=== PATIENT | female | born 1960 ===

== ENCOUNTER 2017-08-12 19:04 | Emergency (ER) | payer SELFPAY ==
[2017-08-12 20:02] LABS: HEMOGLOBIN 14.7 g/dL (11.0-16.0); MEAN CELL VOLUME 86.6 fL (81.0-99.0); MEAN CORPUSCULAR HEMOGLOBIN 30.6 pg (27.0-31.0); MEAN CORPUSCULAR HGB CONC 35.3 g/dL (33.0-37.0); MEAN PLATELET VOLUME 8.6 fL (7.2-11.7); RBC 4.8 Mil/uL (3.80-5.20)
[2017-08-12 20:15] LABS: ALBUMIN 4.3 g/dL (3.5-5.0); ALT/SGPT 43 U/L (9-52); AST/SGOT 54 U/L (14-36); BLOOD UREA NITROGEN 11 mg/dL (7-17); CALCIUM 9.5 mg/dl (8.6-10.4); GFR AFRICAN-AMERICAN > 60; GFR NON-AFRICAN AMERICAN > 60
--- NOTE | 2017-08-12 20:33 | C.PDOC ---
History Of Present Illness 57 year old male presents to the ER with family for a complaint of dizziness that began at approximately 15:00 that worsens with head movement and is associated with intermittent headache and nausea. As per family patient was recently sick with cough and cough symptoms last week. Denies weakness, numbness , chest pain, vomiting, or diarrhea. Chief Complaint (Nursing): Dizziness/Lightheaded History Per: Patient History/Exam Limitations: no limitations Onset/Duration Of Symptoms: Hrs Current Symptoms Are (Timing): Still Present Associated Symptoms Preceding Syncopal Episode: Worse With Standing Seizure Or Post-ictal Symptoms: None Fall Associated With With Symptoms: No Recent travel outside of the [place]: No - Symptoms Of CVA Associated Symptoms: denies: Impaired Speech, Seizure Activity, New Vision Deficit(Left), New Vision Deficit(Right), Decreased Ability To Walk, New Confusion Recent Head Trauma: No Past Medical History Reviewed: Historical Data, Nursing Documentation, Vital Signs Vital Signs: Last Vital Signs Temp 97.6 F 08/12/17 20:46 Pulse 72 08/12/17 20:46 Resp 20 08/12/17 20:46 BP 170/93 H 08/12/17 20:46 Pulse Ox 99 08/12/17 21:06 Family History: States: Unknown Family Hx - Social History Hx Alcohol Use: No Hx Substance Use: No - Immunization History Hx Tetanus Toxoid Vaccination: No Hx Influenza Vaccination: No Hx Pneumococcal Vaccination: No Review Of Systems Constitutional: Negative for: Fever, Chills Cardiovascular: Negative for: Chest Pain Gastrointestinal: Positive for: Nausea. Negative for: Vomiting, Diarrhea Neurological: Positive for: Headache, Dizziness. Negative for: Weakness, Numbness Physical Exam - Physical Exam Appears: Non-toxic Skin: Normal Color, Warm, Dry Head: Atraumatic, Normacephalic Eye(s): bilateral: Normal Inspection, PERRL, EOMI Ear(s): Bilateral: Normal Nose: Normal Oral Mucosa: Moist Throat: Normal, No Erythema, No Exudate Neck: Normal, Supple Chest: Symmetrical, No Tenderness Cardiovascular: Rhythm Regular Respiratory: Normal Breath Sounds, No Rales, No Rhonchi, No Wheezing Gastrointestinal/Abdominal: Soft, No Tenderness Neurological/Psych: Oriented x3, Normal Speech, Normal Cranial Nerves, Normal Motor, Normal Sensation, Other (Positive sterling hallpike maneuver on bilateral sides) ED Course And Treatment - Laboratory Results Result Diagrams: 08/12/17 19:59 08/12/17 19:59 ECG: Interpreted By Me, Viewed By Me ECG Interpretation: Normal Interpretation Of ECG: Mild sinus arrhythmia, no ectope, no acute ST/T wave changes. No old EKG for comparison. Rate From EC O2 Sat by Pulse Oximetry: 99 (Room air) Pulse Ox Interpretation: Normal Medical Decision Making Medical Decision Making: Impression: acute viral labyrinthitis. Blood work is all within normal limits, will dc with Rx for antibiotics and meclizine and instruct to follow up with PMD. Disposition - Disposition Referrals: [facility] at [facility] [Outside] Disposition: HOME/ ROUTINE Disposition Time: 20:32 Condition: GOOD Additional Instructions: take meclizine as needed,abiotics as prescribed Prescriptions: Amoxicillin/Potassium Clav [Augmentin 500-125 Tablet] 1 each PO TID #21 tablet Meclizine [Antivert] 12.5 mg PO TID PRN #15 tab PRN Reason: vertigo Instructions: Labyrinthitis (ED), Hypertension (ED) Forms: [employer] ([employer]) - Clinical Impression Clinical Impression: Labyrinthitis of both ears, Hypertension - Scribe Statement The provider has reviewed the documentation as recorded by the Scribe Orestes Tim All medical record entries made by the Scribe were at my direction and personally dictated by me. I have reviewed the chart and agree that the record accurately reflects my personal performance of the history, physical exam, medical decision making, and the department course for this patient. I have also personally directed, reviewed, and agree with the discharge instructions and disposition.
[2017-08-12 20:46] VITALS: BP 170/93; PULSE 72; RESP 20; TEMP 97.6
[2017-08-12 21:05] VITALS: O2SAT 99
[2017-08-12] MEDS ORDERED: Amoxicillin-Clav 500-125 mg Tab PO ONE (21:07)
--- NOTE | 2017-08-15 09:03 | CARD ---
APPROVED REPORT EKG Measurement Heart [id number] <Conclusion> Normal sinus rhythm with sinus arrhythmia Nonspecific ST and T wave abnormality Abnormal ECG
== END 2017-08-12 21:07 | disposition home or self-care (01) ==
LOC: C.ER 19:04
DX: I10 Essential (primary) hypertension (principal); H83.03 Labyrinthitis, bilateral

== ENCOUNTER 2018-08-12 06:39 | Emergency (ER) | payer MEDICAID, OTHER ==
[2018-08-12 07:03] VITALS: RESP 16; TEMP 98.6; O2SAT 99
[2018-08-12 07:20] LABS: SQUAMOUS EPITHIAL 1 /hpf (0-5); URINE BACTERIA RARE (<OCC); URINE BILIRUBIN NEGATIVE (NEGATIVE); URINE BLOOD NEGATIVE (NEGATIVE); URINE CLARITY Hazy (Clear); URINE COLOR Yellow (YELLOW); URINE GLUCOSE (UA) NORMAL (Normal); URINE HYALINE CAST 0-2 /lpf (0-2); URINE LEUKOCYTE ESTERASE NEG Leu/uL (Negative); URINE PROTEIN NEGATIVE (NEGATIVE); URINE UROBILINOGEN NORMAL mg/dL (0.2-1.0)
--- NOTE | 2018-08-12 07:28 | C.PDOC ---
History Of Present Illness 58 year old female presents to the ED for evaluation of persistent lower abdominal pain that occasionally radiates to the lower back for 5 days. The patient reports prior PMD visit who prescribed an unknown antibiotic 1 week ago, that was finished 1 day ago, no changes or improvement in symptoms. She notes the lower back pain waxes and wanes. Questionable frequency. Denies fever, chills, nausea, vomiting, and any other associated symptoms. Time Seen by Provider: 08/12/18 07:11 Chief Complaint (Nursing): Female Genitourinary History Per: Patient History/Exam Limitations: no limitations Onset/Duration Of Symptoms: Days (x5), Waxing/Waning, Persistent Current Symptoms Are (Timing): Still Present Recent travel outside of the [place]: No Past Medical History Reviewed: Historical Data, Nursing Documentation, Vital Signs Vital Signs: Last Vital Signs Temp 98.6 F 08/12/18 06:54 Pulse 78 08/12/18 06:54 Resp 16 08/12/18 06:54 BP 132/79 08/12/18 06:54 Pulse Ox 99 08/12/18 06:54 Family History: States: Unknown Family Hx - Social History Hx Alcohol Use: No Hx Substance Use: No - Immunization History Hx Tetanus Toxoid Vaccination: No Hx Influenza Vaccination: No Hx Pneumococcal Vaccination: No Review Of Systems Except As Marked, All Systems Reviewed And Found Negative. Constitutional: Negative for: Fever, Chills Gastrointestinal: Positive for: Abdominal Pain (lower. ). Negative for: Nausea, Vomiting Musculoskeletal: Positive for: Back Pain (radiates to lower back. ) Physical Exam - Physical Exam Appears: Well, Non-toxic, No Acute Distress Skin: Normal Color, Warm, Dry Head: Atraumatic, Normacephalic Eye(s): bilateral: Normal Inspection Oral Mucosa: Moist Neck: Normal ROM Chest: Symmetrical, No Deformity Cardiovascular: Rhythm Regular, No Murmur Respiratory: Normal Breath Sounds, No Rales, No Rhonchi, No Wheezing, Other (NARD) Gastrointestinal/Abdominal: Soft, Tenderness (suprapubic and lower abdominal tenderness. ) Extremity: Bilateral: Atraumatic, Normal Color And Temperature, Normal ROM Neurological/Psych: Oriented x3, Normal Speech, Normal Cognition ED Course And Treatment - Laboratory Results Result Diagrams: 08/12/18 08:10 08/12/18 08:10 Lab Results: Urine Color Yellow (YELLOW) 08/12/18 07:11 Urine Clarity Hazy (Clear) 08/12/18 07:11 Urine pH 5.0 (5.0-8.0) 08/12/18 07:11 Ur Specific [place] 1.023 (1.003-1.030) 08/12/18 07:11 Urine Protein Negative mg/dL (NEGATIVE) 08/12/18 07:11 Urine Glucose (UA) Normal mg/dL (Normal) 08/12/18 07:11 Urine Ketones Negative mg/dL (NEGATIVE) 08/12/18 07:11 Urine Blood Negative (NEGATIVE) 08/12/18 07:11 Urine Nitrate Negative (NEGATIVE) 08/12/18 07:11 Urine Bilirubin Negative (NEGATIVE) 08/12/18 07:11 Urine Urobilinogen Normal mg/dL (0.2-1.0) 08/12/18 07:11 Ur Leukocyte Esterase Neg [place]/uL (Negative) 08/12/18 07:11 Urine WBC (Auto) 4 /hpf (0-5) 08/12/18 07:11 Urine RBC (Auto) 21 /hpf (0-3) H 08/12/18 07:11 Ur Squamous Epith Cells 1 /hpf (0-5) 08/12/18 07:11 Urine Bacteria Rare (<OCC) 08/12/18 07:11 Hyaline Casts 0-2 /lpf (0-2) 08/12/18 07:11 O2 Sat by Pulse Oximetry: 99 (RA) Pulse Ox Interpretation: Normal - CT Scan/US CT ABD/Pelvis Other Rad Studies (CT/US): Read By Radiologist CT/US Interpretation: FINDINGS: LOWER THORAX: The visualized lungs are clear. LIVER: Normal in size with homogeneous enhancement. No gross lesion or ductal dilatation. GALLBLADDER AND BILE DUCTS: Well distended. No calcified ga llstones, wall thickening or pericholecystic fluid. PANCREAS: Normal in size with homogeneous enhancement. No gross lesion or ductal dilatation. SPLEEN: Normal in size and appearance. ADRENALS: No discrete nodule. KIDNEYS AND URETERS: Normal in size with homogeneous enhancement. There is a 3 mm nonobstructing stone in the interpolar region of the left kidney. No hydronephrosis. There is a subcentimeter simple cyst in the interpolar region of the left kidney. No solid mass. VASCULATURE: No aortic aneurysm. There are aortic atherosclerotic calcifications present. BOWEL: The small bowel loops are normal in caliber. The colon is grossly normal in appearance. No bowel wall thickening or obstruction. APPENDIX: Normal appendix. PERITONEUM: No free fluid. No free air. LYMPH NODES: No enlarged lymph nodes. BLADDER: Partially decompressed. REPRODUCTIVE: The uterus is normal in size and deviated to the left. BONES: No acute fracture. Bilateral pars interarticularis defects at L4 with grade 1 anterior listhesis of L4 on L5. Severe degenerative disc disease at L4-5 with disc desiccation. OTHER FINDINGS: There is a small sliding hiatal hernia. IMPRESSION: No acute abdominal or pelvic abnormality. 3 mm nonobstructing stone in the interpolar region of the l eft kidney. Bilateral pars interarticularis defects at L4 with grade 1 anterior listhesis of L4 on L5. Progress - Re-Evaluation Re-evaluation Note: 08/12/18 11:[address], LABS WNL. NO FINDINGS FOR ACUTE ABD. DC FU PMD - Data Reviewed Data Reviewed: Lab, Diagnostic imaging, Old records Medical Decision Making Medical Decision Making: Plan: -CT ABD PELVIS PO & IV CONTRAST -Blood sent. -Morphine -Zofran -Urinalysis Progress/Update: Patient stable for discharge home. Prescribed Antivert and Augmentin. Advised to return to the ED if symptoms worsen. Disposition Counseled Patient/Family Regarding: Studies Performed, Diagnosis, Need For Followup - Disposition Referrals: [facility] [Outside] [facility] [Outside] Disposition: HOME/ ROUTINE Disposition Time: 11:20 Condition: GOOD Instructions: Acute Abdomen (Belly Pain), Adult (DC) Forms: [employer] (Trinidadian) - Clinical Impression Clinical Impression: Abdominal pain - Scribe Statement The provider has reviewed the documentation as recorded by the Scribe (Concha marino) Provider Attestation: All medical record entries made by the Scribe were at my direction and personally dictated by me. I have reviewed the chart and agree that the record accurately reflects my personal performance of the history, physical exam, medical decision making, and the department course for this patient. I have also personally directed, reviewed, and agree with the discharge instructions and disposition.
[2018-08-12] MEDS ORDERED: Iohexol 240 (50 ml) PO STA (07:29)
[2018-08-12] MEDS ORDERED: Iohexol 240 (50 ml) ONE (08:06)
[2018-08-12] MEDS ORDERED: Morphine 4 MG/ML VIAL ONE (08:06)
[2018-08-12 08:13] LABS: BASO % 1.2 % (0.0-2.0); EOS # 0.2 K/uL (0.0-0.7); EOS % 5.2 % (0.0-4.0); HEMOGLOBIN 14.9 g/dL (11.0-16.0); LYMPH % 49.3 % (20.0-40.0); MEAN CORPUSCULAR HEMOGLOBIN 30.2 pg (27.0-31.0); MEAN PLATELET VOLUME 8.1 fL (7.2-11.7); MONO # 0.4 K/uL (0.0-0.8); MONO % 10.2 % (0.0-10.0); NEUT # 1.4 K/uL (1.8-7.0); NEUT % 34.1 % (50.0-75.0); NRBC % 0.1 % (0.0-2.0); RBC 4.94 Mil/uL (3.80-5.20); RED CELL DISTRIBUTION WIDTH 13.3 % (11.5-14.5); WHITE BLOOD COUNT 4.1 K/uL (4.8-10.8)
[2018-08-12 08:17] LABS: MEAN CELL VOLUME 88.7 fL (81.0-99.0)
[2018-08-12 08:31] LABS: ALB/GLOB RATIO 1.3 (1.0-2.1); ALBUMIN 4.6 g/dL (3.5-5.0); ALT/SGPT 58 U/L (9-52); AST/SGOT 74 U/L (14-36); BLOOD UREA NITROGEN 12 mg/dL (7-17); CALCIUM 9.6 mg/dl (8.6-10.4); GFR NON-AFRICAN AMERICAN > 60; LIPASE 258 U/L (23-300)
[2018-08-12] MEDS ORDERED: Iodixanol 320 MG/ML 100 ML BOTTLE IV ONE (09:38)
--- NOTE | 2018-08-12 11:16 | CT ---
Date of service: 08/12/2018 PROCEDURE: CT Abdomen and Pelvis with contrast HISTORY: Abdominal pain, left lower quadrant pain COMPARISON: None available. TECHNIQUE: CT scan of the abdomen and pelvis was performed after administration of intravenous contrast. Oral contrast was administered. Coronal and sagittal reformatted images were obtained. Contrast dose: 100 mL Visipaque 320 Radiation dose: Total exam DLP = 203.77 mGy-cm. This CT exam was performed using one or more of the following dose reduction techniques: Automated exposure control, adjustment of the mA and/or kV according to patient size, and/or use of iterative reconstruction technique. FINDINGS: LOWER THORAX: The visualized lungs are clear. LIVER: Normal in size with homogeneous enhancement. No gross lesion or ductal dilatation. GALLBLADDER AND BILE DUCTS: Well distended. No calcified gallstones, wall thickening or pericholecystic fluid. PANCREAS: Normal in size with homogeneous enhancement. No gross lesion or ductal dilatation. SPLEEN: Normal in size and appearance. ADRENALS: No discrete nodule. KIDNEYS AND URETERS: Normal in size with homogeneous enhancement. There is a 3 mm nonobstructing stone in the interpolar region of the left kidney. No hydronephrosis. There is a subcentimeter simple cyst in the interpolar region of the left kidney. No solid mass. VASCULATURE: No aortic aneurysm. There are aortic atherosclerotic calcifications present. BOWEL: The small bowel loops are normal in caliber. The colon is grossly normal in appearance. No bowel wall thickening or obstruction. APPENDIX: Normal appendix. PERITONEUM: No free fluid. No free air. LYMPH NODES: No enlarged lymph nodes. BLADDER: Partially decompressed. REPRODUCTIVE: The uterus is normal in size and deviated to the left. BONES: No acute fracture. Bilateral pars interarticularis defects at L4 with grade 1 anterior listhesis of L4 on L5. Severe degenerative disc disease at L4-5 with disc desiccation. OTHER FINDINGS: There is a small sliding hiatal hernia. IMPRESSION: No acute abdominal or pelvic abnormality. 3 mm nonobstructing stone in the interpolar region of the left kidney. Bilateral pars interarticularis defects at L4 with grade 1 anterior listhesis of L4 on L5.
[2018-08-12 11:28] VITALS: BP 107/69; PULSE 72
== END 2018-08-12 11:38 | disposition home or self-care (01) ==
LOC: C.ER 06:39
DX: R10.30 Lower abdominal pain, unspecified (principal)
CPT/HCPCS: 74177; 80053; 81001; 83690; 85025; 99285; Q9966; Q9967

== ENCOUNTER 2018-12-14 06:38 | Emergency (ER) | payer MEDICAID, OTHER ==
--- NOTE | 2018-12-14 07:11 | C.PDOC ---
History Of Present Illness 58 y/o female c/o pain and swelling to distal right middle finger x 2 weeks and pain to left middle finger, denies injury. no hx dm. pt hasn't taken anything for pain Time Seen by Provider: 12/14/18 06:59 Chief Complaint (Nursing): Finger,Hand,&Wrist History Per: Patient History/Exam Limitations: no limitations Onset/Duration Of Symptoms: Days (14) Current Symptoms Are (Timing): Still Present Quality: "Pain" Severity: Moderate Exacerbating Factor(s): Movement Past Medical History Reviewed: Historical Data, Nursing Documentation, Vital Signs Vital Signs: Last Vital Signs Temp 97.4 F L 12/14/18 06:42 Pulse 73 12/14/18 06:42 Resp 16 12/14/18 06:42 BP 117/77 12/14/18 06:42 Pulse Ox 97 12/14/18 06:42 Primary Care Provider: Kalia Pinzon Family History: States: Unknown Family Hx - Social History Hx Alcohol Use: No Hx Substance Use: No - Immunization History Hx Tetanus Toxoid Vaccination: No Hx Influenza Vaccination: No Hx Pneumococcal Vaccination: No Review Of Systems Constitutional: Negative for: Fever, Chills Skin: Positive for: Bruising (to nail bed). Negative for: Rash Neurological: Negative for: Weakness, Numbness Physical Exam - Physical Exam Appears: Non-toxic, No Acute Distress Skin: Warm, Dry Extremity: Normal ROM (painful to right third finger. ), Tenderness (right and left 3rd fingers, worse with extension. ), Other (swelling to distal tip of ri ght 3rd finger, mild discoloration to lateral half of nail. no erythema or warmth, no paronychia or felon noted. ) Pulses: Right Radial: Normal Neurological/Psych: Oriented x3, Normal Speech, Normal Cognition ED Course And Treatment O2 Sat by Pulse Oximetry: 97 Medical Decision Making Medical Decision Making: right 3rd finger pain with swelling, left 3rd finger pain, no signs of infection; xray, tylenol 0802 no fx noted on xray; d/chome with nsaids and pepcid. hand surgeon f/u Disposition Counseled Patient/Family Regarding: Studies Performed, Diagnosis, Need For Followup, Rx Given - Disposition Referrals: Jamil Garrido MD [Staff Provider] - Disposition: HOME/ ROUTINE Disposition Time: 08:03 Condition: GOOD Additional Instructions: Please follow up with Dr Garrido- hand surgeon. Take Pepcid once a day; take ibuprofen every 8 hours with food. Jb also take Tylenol. Prescriptions: Acetaminophen [Tylenol 325mg tab] 650 mg PO Q6 #30 tab Famotidine [Pepcid] 20 mg PO DAILY #14 tab Ibuprofen [Motrin] 600 mg PO TID #30 tab Instructions: Hand Pain Forms: [facility] [employer] (Arabic), General Discharge Instructions - Clinical Impression Clinical Impression: Pain in finger of both hands
[2018-12-14 07:50] VITALS: TEMP 97.3
[2018-12-14 08:29] VITALS: BP 105/73; PULSE 65; RESP 18
--- NOTE | 2018-12-14 09:19 | RAD ---
Date of service: 12/14/2018 PROCEDURE: Right middle finger radiographs. HISTORY: pain and swelling COMPARISON: None. TECHNIQUE: AP radiograph of the right hand, as well as spot oblique and lateral images of index finger were obtained. 3 views obtained. FINDINGS: RIGHT MIDDLE FINGER: Right middle finger normal, without fracture of focal lesion. Remainder of the right hand (as seen on the AP view) grossly unremarkable. JOINTS: Normal. SOFT TISSUES: Normal. OTHER FINDINGS: None. IMPRESSION: Normal right middle finger radiographs.
[2018-12-17 09:03] VITALS: O2SAT 97
== END 2018-12-14 08:29 | disposition home or self-care (01) ==
LOC: C.ER 06:38
DX: M79.645 Pain in left finger(s) (principal); M79.644 Pain in right finger(s)